=== PATIENT | male | born 1980 | race American Indian/Alaskan Native ===

== ENCOUNTER 2020-12-18 08:26 | Emergency (ER) | payer OTHER ==
[2020-12-18] MEDS ORDERED: SODIUM CHLORIDE 0.9% 1000 ML 1,000 ML IV ONE (08:58)
--- NOTE | 2020-12-18 09:13 | Emergency Department Report ---
HPI - General Chief Complaint: Seizure Time Seen by Provider: 12/18/20 08:34 - HPI HPI: This is a 40-year-old male presents to the emergency department via EMS from [facility], where the patient is currently being treated for a history of alcohol dependence, with a complaint of 2 seizures. Patient says that he has had 4 seizures total since 2018. He had a seizure last night, and another this morning. In these instances he had some type of aura in which he felt like the seizure was going to come on. He describes it as a spinning sensation that only happens on the right side. He also says that prior to the seizure occurring he was told that he had some type of tremor. The patient is not on any seizure medications. For both of the seizures the patient says that he remained awake and alert but had uncontrollable movements. At the time my examination he denies any fever, vision change, headache, chest pain, shortness of breath. Patient went to [facility] night, going into Friday, for his medical clearance and this is about the time that the patient had his last drink. ED Past Medical Hx - Past Medical History Hx Seizures: Yes - Social History Smoking Status: Unknown if ever smoked ED Review of Systems ROS: Stated complaint: SEIZURE Other details as noted in HPI Comment: All other systems reviewed and negative Constitutional: denies: chills, fever Eyes: denies: eye pain, vision change ENT: denies: ear pain, throat pain Respiratory: denies: cough, shortness of breath Cardiovascular: denies: chest pain, palpitations Gastrointestinal: denies: abdominal pain, vomiting Genitourinary: denies: dysuria, discharge Musculoskeletal: denies: back pain, arthralgia Skin: denies: rash, lesions Neurological: other (Seizures). denies: numbness Physical Exam - Physical Exam Vital Signs: Vital Signs 12/18/20 08:31 Temperature 98.8 F Pulse Rate 74 Respiratory 16 Rate Blood Pressure 152/94 O2 Sat by Pulse 97 Oximetry Physical Exam: GENERAL: The patient is well-developed well-nourished. HENT: Normocephalic. Atraumatic. Patient has moist mucous membranes. EYES: Extraocular motions are intact. No nystagmus. NECK: Supple. Trachea is midline. CHEST/LUNGS: Clear to auscultation. There is no respiratory distress noted. HEART/CARDIOVASCULAR: Regular. There is no tachycardia. There is no murmur. ABDOMEN: Abdomen is soft, nontender. Patient has normal bowel sounds. There is no abdominal distention. SKIN: Skin is warm and dry. NEURO: The patient is awake, alert, and oriented. The patient is cooperative. The patient has no focal neurologic deficits. Normal speech. No facial asymmetry. Cranial nerves II through XII grossly intact. No pronator drift or dysmetria. Patient has a very mild distal bilateral upper extremity tremor. MUSCULOSKELETAL: There is no tenderness or deformity. There is no limitation range of motion. ED Course Vital Signs 12/18/20 08:31 Temperature 98.8 F Pulse Rate 74 Respiratory 16 Rate Blood Pressure 152/94 O2 Sat by Pulse 97 Oximetry ED Medical Decision Making - Lab Data Result diagrams: 12/18/20 09:14 12/18/20 09:14 Lab Results 12/18/20 12/18/20 12/18/20 Range/Units 09:14 09:14 09:14 WBC 3.7 L (4.5-11.0) K/mm3 RBC 3.73 (3.65-5.03) M/mm3 Hgb 14.1 (11.8-15.2) gm/dl Hct 41.1 (35.5-45.6) % MCV 110 H (84-94) fl MCH 38 H (28-32) pg MCHC 34 (32-34) % RDW 15.7 H (13.2-15.2) % Plt Count 80 L (140-440) K/mm3 Lymph % (Auto) 10.7 L (13.4-35.0) % [place] % (Auto) 5.5 (0.0-7.3) % Eos % (Auto) 4.5 H (0.0-4.3) % Baso % (Auto) 1.7 (0.0-1.8) % Lymph # (Auto) 0.4 L (1.2-5.4) K/mm3 [place] # (Auto) 0.2 (0.0-0.8) K/mm3 Eos # (Auto) 0.2 (0.0-0.4) K/mm3 Baso # (Auto) 0.1 (0.0-0.1) K/mm3 Seg Neutrophils % 77.6 H (40.0-70.0) % Seg Neutrophils # 2.9 (1.8-7.7) K/mm3 Sodium 140 (137-145) mmol/L Potassium 3.5 L (3.6-5.0) mmol/L Chloride 103.0 (98-107) mmol/L Carbon Dioxide 28 (22-30) mmol/L Anion Gap 13 mmol/L BUN 12 (9-20) mg/dL Creatinine 0.7 L (0.8-1.3) mg/dL Estimated GFR > 60 ml/min BUN/Creatinine Ratio 17 % Glucose 74 L (75-100) mg/dL Calcium 8.8 (8.4-10.2) mg/dL Total Bilirubin 1.20 (0.1-1.2) mg/dL AST 84 H (5-40) units/L ALT 79 H (7-56) units/L Alkaline Phosphatase 90 (35-129) units/L Total Creatine Kinase 46 L (55-170) units/L Total Protein 6.4 (6.3-8.2) g/dL Albumin 3.5 L (3.9-5) g/dL Albumin/Globulin Ratio 1.2 % TSH 1.230 (0.270-4.200) mlU/mL Urine Opiates Screen Urine Methadone Screen Ur Barbiturates Screen Ur Phencyclidine Scrn Ur Amphetamines Screen U Benzodiazepines Scrn Urine Cocaine Screen U Marijuana (THC) Screen Drugs of Abuse Note Plasma/Serum Alcohol (0-0.07) % 12/18/20 12/18/20 Range/Units 09:14 Unknown WBC (4.5-11.0) K/mm3 RBC (3.65-5.03) M/mm3 Hgb (11.8-15.2) gm/dl Hct (35.5-45.6) % MCV (84-94) fl MCH (28-32) pg MCHC (32-34) % RDW (13.2-15.2) % Plt Count (140-440) K/mm3 Lymph % (Auto) (13.4-35.0) % [place] % (Auto) (0.0-7.3) % Eos % (Auto) (0.0-4.3) % Baso % (Auto) (0.0-1.8) % Lymph # (Auto) (1.2-5.4) K/mm3 [place] # (Auto) (0.0-0.8) K/mm3 Eos # (Auto) (0.0-0.4) K/mm3 Baso # (Auto) (0.0-0.1) K/mm3 Seg Neutrophils % (40.0-70.0) % Seg Neutrophils # (1.8-7.7) K/mm3 Sodium (137-145) mmol/L Potassium (3.6-5.0) mmol/L Chloride (98-107) mmol/L Carbon Dioxide (22-30) mmol/L Anion Gap mmol/L BUN (9-20) mg/dL Creatinine (0.8-1.3) mg/dL Estimated GFR ml/min BUN/Creatinine Ratio % Glucose (75-100) mg/dL Calcium (8.4-10.2) mg/dL Total Bilirubin (0.1-1.2) mg/dL AST (5-40) units/L ALT (7-56) units/L Alkaline Phosphatase (35-129) units/L Total Creatine Kinase (55-170) units/L Total Protein (6.3-8.2) g/dL Albumin (3.9-5) g/dL Albumin/Globulin Ratio % TSH (0.270-4.200) mlU/mL Urine Opiates Screen Negative Urine Methadone Screen Negative Ur Barbiturates Screen Negative Ur Phencyclidine Scrn Negative Ur Amphetamines Screen Negative U Benzodiazepines Scrn Presumptive positive Urine Cocaine Screen Negative U Marijuana (THC) Screen Presumptive positive Drugs of Abuse Note Disclamer Plasma/Serum Alcohol < 0.01 (0-0.07) % - EKG Data -: EKG Interpreted by Pa EKG shows normal: sinus rhythm, axis, intervals, QRS complexes, ST-T waves Rate: normal - EKG Data When compared to previous EKG there are: previous EKG unavailable Interpretation: normal EKG - Medical Decision Making This patient presents to the emergency department with a complaint of 2 different episodes of seizure-like activity. However it appears atypical as the patient says that he remained awake and oriented during the seizure-like activity. Overall he says he has had for seizures in the past 3 years. These past 2 "seizures" occurred a few days after the patient stopped drinking and entered rehabilitation/detox. At the time of my examination the patient is awake, alert, oriented and does not appear in any acute distress. He does not have any focal, motor or sensory deficits and his cranial nerves are intact. He does not complain of any headache, vision change, slurred speech, numbness or paresthesias. For these reasons I did not feel that he required CT imaging of the head at this time. He was given some IV fluid resuscitation and loaded with some Keppra. Labs have been mostly unremarkable including CBC, metabolic panel, thyroid function, blood alcohol, CK level, but UDS is positive for marijuana and benzodiazepines. EKG did not have any morphology consistent with ST elevation myocardial infarction or any arrhythmia. Vital signs have been reassuring throughout his ED course including being afebrile. The patient has been reevaluated multiple times over multiple hours and has not had any return of any seizure-like activity. For all these reasons he appears safe for discharge back to a psychiatric facility. He has been instructed to follow-up with primary care, and has been given an outpatient referral for neurology, when he is done with his substance rehabilitation/detox. He has also been instructed to go to the closest emergency department with any further seizure-like activity or with any acute distress. Critical Care Time: No Critical care attestation.: If time is entered above; I have spent that time in minutes in the direct care of this critically ill patient, excluding procedure time. ED Disposition Clinical Impression: Seizure Disposition: DC-01 TO HOME OR SELFCARE Is pt being admited?: No Condition: Stable Instructions: Seizure, Adult Additional Instructions: Please follow-up with a primary care physician in the next few days. I am giving you a referral for a local neurologist, Dr. Gunter, to follow-up regarding your seizure-like activity. Because of your seizures, you are unable to drive a vehicle or operate heavy machinery or until you are cleared by a neurologist. Please avoid any illicit drug use or alcohol use, or any excessive caffeine use, as this can lower your seizure threshold. Try to get 8 hours of uninterrupted sleep per night. Return to the emergency department with any worsening of your symptoms, new or concerning symptoms not addressed during this current emergency department visit, or with any acute distress. Referrals: PRIMARY MD NIEVES [Primary Care Provider] - 3-5 Days EVONNE GUNTER MD [Referring] - 3-5 Days Time of Disposition: 12:19
[2020-12-18] MEDS ORDERED: levETIRAcetam 1000 MG/NS 0.75% 1,000 MG/100 ML BAG IV ONE (09:30)
[2020-12-18 09:43] LABS: Basophils # (Auto) 0.1 K/mm3 (0.0-0.1); Basophils % (Auto) 1.7 % (0.0-1.8); Eosinophils # (Auto) 0.2 K/mm3 (0.0-0.4); Eosinophils % (Auto) 4.5 % (0.0-4.3); Hematocrit 41.1 % (35.5-45.6); Hemoglobin 14.1 gm/dl (11.8-15.2); Lymphocytes # (Auto) 0.4 K/mm3 (1.2-5.4); Lymphocytes % (Auto) 10.7 % (13.4-35.0); Mean Corpuscular HGB Conc 34 % (32-34); Monocytes # (Auto) 0.2 K/mm3 (0.0-0.8); Monocytes % (Auto) 5.5 % (0.0-7.3); Red Blood Count 3.73 M/mm3 (3.65-5.03); Red Cell Distribution Width 15.7 % (13.2-15.2)
[2020-12-18 09:56] LABS: Mean Corpuscular Volume 110 fl (84-94); Platelet Count 80 K/mm3 (140-440)
[2020-12-18 10:03] LABS: Alanine Aminotransferase 79 units/L (7-56); Albumin 3.5 g/dL (3.9-5); BUN/Creatinine Ratio 17; Blood Urea Nitrogen 12 mg/dL (9-20); Calcium 8.8 mg/dL (8.4-10.2); Hemolysis Index 7
[2020-12-18 11:57] LABS: Amphetamine Screen,Urine Negative; Cocaine Screen,Urine Negative; Methadone Screen,Urine Negative; Opiate Screen,Urine Negative
[2020-12-18 12:32] LABS: Benzodiazepines Screen,Urine PRESUMPTIVE POSITIVE; Cannabinoid Screen,Urine PRESUMPTIVE POSITIVE
[2020-12-18 13:04] VITALS: BP 127/91
--- NOTE | 2020-12-19 10:01 | Consultation ---
History of Present Illness - Reason for Consult Consult date: 12/19/20 Reason for consult: detox - History of Present Psychiatric Illness Per ER Note: This is a 40-year-old male presents to the emergency department via EMS from [place], where the patient is currently being treated for a history of alcohol dependence, with a complaint of 2 seizures. Patient says that he has had 4 seizures total since 2018. He had a seizure last night, and another this morning. In these instances he had some type of aura in which he felt like the seizure was going to come on. He describes it as a spinning sensation that only happens on the right side. He also says that prior to the seizure occurring he was told that he had some type of tremor. The patient is not on any seizure medications. For both of the seizures the patient says that he remained awake and alert but had uncontrollable movements. At the time my examination he denies any fever, vision change, headache, chest pain, shortness of breath. Patient went to [facility] night, going into Friday, for his medical clearance and this is about the time that the patient had his last drink. Brian Graham is a 40y/o male patient who was seen today. The patient has a sitter at bedside. He states he is from [place] and was sent there for alcohol detox. The patient is calm and cooperative. He is polite. He says he drinks about 1/2 pint of liqueur every day. The patient denies SI/HI, he says "I guess if you call wanting to drink yourself to suicidal." He then states "But, no, I don't want to kill myself." He says "I'm just over the drinking myself." The patient says he has a good support system with his mom and sisters. He denies being on any psych meds or seeing a psychiatrist. He says "I've seen a therapist but I don't have any insurance for that." He denies hallucinations of any kind. When asking the patient was he depressed, he replies "I'm not currently depressed. Just tired of the drinking." PAST PSYCHIATRIC HISTORY Diagnoses: Alcohol dependence Suicide attempts or Self-harm behavior: Yes Prior psychiatric hospitalizations: Yes Substance Abuse history: alcohol Previous psychiatric medications tried: Denies Outpatient treatment: Denies PAST MEDICAL HISTORY: None reported Family Psychiatric History: None reported or documented SOCIAL HISTORY Marital Status: Single Living Arrangements: roommate Employment Status: Unemployed Access to guns/weapons: Denies History of Abuse: Denies Legal History: None reported REVIEW OF SYSTEMS Constitutional: Negative for weight loss ENT: Negative for stridor Respiratory: Negative for cough or hemoptysis All other systems reviewed and are negative MENTAL STATUS EXAMINATION General Appearance and Behavior: Age appropriate, good hygiene, wearing appropriate clothes, good eye contact, calm and cooperative Cooperation: Participating/engaged, but Guarded Psychomotor Behavior: Psychomotor normal Mood: okay Affect and affective range: Euthymic Thought Process: Goal directed Thought Content: None Speech: Normal rate, volume and rhythm Intellectual Functioning: Average Suicidal Ideation: Denies Homicidal Ideation: Denies Hallucinations: Denies Delusions: None elicited Impulse Control: Unimpaired Insight and Judgment: Limited insight and judgment Memory: Normal Attention: Normal Orientation: Alert, oriented Assessment and Plan (1) Alcohol Dependence Current Visit: Yes Status: Acute Treatment Plan Trazodone 50mg po qhs Depakote DR 125mg po BID Vistaril 25mg po q6h prn anxiety CIWA Risks, benefits and alternatives of medications discussed with the patient, questions answered and consent obtained from patient. PSYCHOTHERAPY: Supportive psychotherapy provided MEDICAL: Per primary team DELIRIUM PRECAUTIONS: Please re-orient patient frequently, keep lights on during the day, and minimize benzodiazepines and opiates as these medications could worsen patient's confusion. MAMMOGRAPHY TECHNICIAN: Per primary DISPOSITION: Do not recommend acute inpatient psychiatric hospitalization at this time. Will follow the patient for medication management The insulation mechanic is to further discuss safety plan and document findings. Will follow. Thank you for the consult. Please contact with any questions and/or concerns. Case discussed with Dr. Yin who agrees with current disposition Medications and Allergies Allergies Allergy/AdvReac Type Severity Reaction Status Date / Time No Known Allergies Allergy Unverified 12/18/20 09:05 Mental Status Exam - Vital signs Last Vital Signs Temp 98.8 F 12/18/20 08:31 Pulse 80 12/18/20 13:01 Resp 15 12/18/20 13:01 BP 127/91 12/18/20 13:01 Pulse Ox 97 12/18/20 13:01 Results Result Diagrams: 12/18/20 09:14 12/18/20 09:14 Abnormal lab results 12/18/20 Range/Units 09:14 Potassium 3.5 L (3.6-5.0) mmol/L Creatinine 0.7 L (0.8-1.3) mg/dL Glucose 74 L (75-100) mg/dL AST 84 H (5-40) units/L ALT 79 H (7-56) units/L Total Creatine Kinase 46 L (55-170) units/L Albumin 3.5 L (3.9-5) g/dL All other labs normal.
[2020-12-19] MEDS ORDERED: chlordiazePOXIDE 25 MG CAP PO PRN (11:00)
[2020-12-19] MEDS ORDERED: hydrOXYzine PAMOATE 25 MG CAP PO PRN (11:00)
[2020-12-19] MEDS ORDERED: LORazepam 2 MG/ML VIAL IV PRN (11:00)
[2020-12-19] MEDS ORDERED: DIVALPROEX DR 125 MG TAB PO SCH (11:00)
[2020-12-19] MEDS ORDERED: traZODone 50 MG TAB PO SCH (22:00)
--- NOTE | 2020-12-28 10:52 | Electrocardiograph Report ---
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
== END 2020-12-18 14:00 | disposition admitted as inpatient to this hospital (09) ==
LOC: ED 08:26
DX: G40.909 Epilepsy, unspecified, not intractable, without status epilepticus (principal)
CPT/HCPCS: 36415; 80053; 80307; 82550; 84443; 85025; 96374; 99284; J1953; J7030; 80320; 93005; G0480

== ENCOUNTER 2020-12-18 20:30 | Inpatient (IN) | payer OTHER ==
[2020-12-19 03:12] LABS: Basophils # (Auto) 0.1 K/mm3 (0.0-0.1); Basophils % (Auto) 0.9 % (0.0-1.8); Eosinophils # (Auto) 0.1 K/mm3 (0.0-0.4); Eosinophils % (Auto) 1.1 % (0.0-4.3); Hematocrit 42.1 % (35.5-45.6); Hemoglobin 14.5 gm/dl (11.8-15.2); Lymphocytes # (Auto) 2.5 K/mm3 (1.2-5.4); Lymphocytes % (Auto) 30.5 % (13.4-35.0); Mean Corpuscular HGB Conc 34 % (32-34); Mean Corpuscular Volume 113 fl (84-94); Monocytes # (Auto) 1.1 K/mm3 (0.0-0.8); Monocytes % (Auto) 12.8 % (0.0-7.3); Platelet Count 118 K/mm3 (140-440); Red Blood Count 3.72 M/mm3 (3.65-5.03); Red Cell Distribution Width 15.5 % (13.2-15.2)
[2020-12-19] MEDS ORDERED: LORazepam 2 MG/ML VIAL IV ONE (03:18)
[2020-12-19] MEDS ORDERED: levETIRAcetam 1000 MG/NS 0.75% 1,000 MG/100 ML BAG IV ONE (03:18)
[2020-12-19] MEDS ORDERED: SODIUM CHLORIDE 0.9% 1000 ML 1,000 ML IV ONE (03:18)
--- NOTE | 2020-12-19 03:23 | Emergency Department Report ---
ED Seizure HPI - General Chief Complaint: Seizure Stated Complaint: C.C. OF SEIZURE Time Seen by Provider: 12/19/20 02:36 Source: patient Mode of arrival: Ambulatory Limitations: No Limitations - History of Present Illness Initial Comments: This is a 40-year-old male nontoxic, well nourished in appearance, no acute signs of distress presents to the ED with c/o of recurrent seizures. Patient was brought by [facility] for recurrent seizures. Patient was discharged last night but started to have seizures again. Patient does have history of seizures but denies taking any seizure medications. Patient describes seizures as uncontrollable movements while remaining awake and alert. Patient denies any chest pain, shortness of breath, fever, chills, nausea, vomiting, headache or stiff neck. Patient is alcohol dependent and stated last alcoholic drink was 5 days ago prior to [facility] rehab center. Patient is currently on 1013 with [place]. Complaint: seizure -: days(s) -: second(s) Witnessed:: Yes Trauma: No Seizure History: known seizure disorder, history of withdrawal se Possible Precipitating Event: drug use, alcohol withdrawal Associated Symptoms: denies other symptoms. denies: chest pain, confusion, cough, diaphoresis, fever/chills, malaise, rash, shortness of breath, syncope, weakness, tongue injury, shoulder dislocation - Related Data Allergies Allergy/AdvReac Type Severity Reaction Status Date / Time No Known Allergies Allergy Unverified 12/18/20 09:05 ED Review of Systems ROS: Stated complaint: C.C. OF SEIZURE Other details as noted in HPI Comment: All other systems reviewed and negative Constitutional: denies: chills, fever Eyes: denies: eye pain, eye discharge, vision change ENT: denies: ear pain, throat pain Respiratory: denies: cough, shortness of breath, wheezing Cardiovascular: denies: chest pain, palpitations Endocrine: no symptoms reported Gastrointestinal: denies: abdominal pain, nausea, diarrhea Genitourinary: denies: urgency, dysuria Musculoskeletal: denies: back pain, joint swelling, arthralgia Skin: denies: rash, lesions Neurological: denies: headache, weakness, paresthesias Psychiatric: denies: anxiety, depression Hematological/Lymphatic: denies: easy bleeding, easy bruising ED Past Medical Hx - Past Medical History Previous Medical History?: Yes Hx Seizures: Yes - Social History Smoking Status: Unknown if ever smoked ED Physical Exam - General Limitations: No Limitations General appearance: alert, in no apparent distress - Head Head exam: Present: atraumatic, normocephalic - Eye Eye exam: Present: normal appearance, PERRL, EOMI - Neck Neck exam: Present: normal inspection, full ROM. Absent: tenderness, meningismus, lymphadenopathy - Respiratory Respiratory exam: Present: normal lung sounds bilaterally. Absent: respiratory distress, wheezes, rales, rhonchi, stridor, chest wall tenderness, accessory muscle use, decreased breath sounds, prolonged expiratory - Cardiovascular Cardiovascular Exam: Present: regular rate, normal rhythm, normal heart sounds. Absent: bradycardia, tachycardia, irregular rhythm, systolic murmur, diastolic murmur, rubs, gallop - GI/Abdominal GI/Abdominal exam: Present: soft, normal bowel sounds. Absent: distended, tenderness, guarding, rebound, rigid, diminished bowel sounds - Extremities Exam Extremities exam: Present: normal inspection, full ROM, normal capillary refill. Absent: tenderness - Back Exam Back exam: Present: normal inspection, full ROM. Absent: tenderness, CVA tenderness (R), CVA tenderness (L), muscle spasm, paraspinal tenderness, vertebral tenderness, rash noted - Neurological Exam Neurological exam: Present: alert, oriented X3, normal gait - Expanded Neurological Exam Expanded Patient oriented to: Present: person, place, time Cranial nerves: EOM's Intact: Normal, Facial Sensation: Normal Cerebellar function: Finger to Nose: Normal Upper motor neuron: Pronator Drift: Normal, Sensory Extinction: Normal Motor strength exam: RUE: 5, LUE: 5, RLE: 5, LLE: 5 Best Eye Response ([place]): (4) open spontaneously Best Motor Response ([place]): (6) obeys commands Best Verbal Response ([place]): (5) oriented [place] Total: 15 - Psychiatric Psychiatric exam: Present: normal affect, normal mood - Skin Skin exam: Present: warm, dry, intact, normal color. Absent: rash ED Course Vital Signs 12/18/20 21:55 Temperature 98.2 F Pulse Rate 69 Respiratory 14 Rate Blood Pressure 133/91 O2 Sat by Pulse 97 Oximetry - Reevaluation(s) Reevaluation #1: 12/19/20 03:26 Patient is speaking in full sentences with no signs of distress noted. - Consultations Consultation #1: 12/19/20 03:27 Patient has been consulted with Dr. Bliss about patient history, physical exam, and agrees to ED plan of care and admission. Consultation #2: 12/19/20 04:21 Patient has been consulted with Dr. Melo (hospitalist) about patient history, physical exam, and labs/CT results and accepts patient to services. ED Medical Decision Making - Lab Data Result diagrams: 12/19/20 02:53 12/19/20 02:53 Lab Results 12/19/20 12/19/20 Range/Units 02:53 02:53 WBC 8.3 (4.5-11.0) K/mm3 RBC 3.72 (3.65-5.03) M/mm3 Hgb 14.5 (11.8-15.2) gm/dl Hct 42.1 (35.5-45.6) % MCV 113 H (84-94) fl MCH 39 H (28-32) pg MCHC 34 (32-34) % RDW 15.5 H (13.2-15.2) % Plt Count 118 L (140-440) K/mm3 Lymph % (Auto) 30.5 (13.4-35.0) % [place] % (Auto) 12.8 H (0.0-7.3) % Eos % (Auto) 1.1 (0.0-4.3) % Baso % (Auto) 0.9 (0.0-1.8) % Lymph # (Auto) 2.5 (1.2-5.4) K/mm3 [place] # (Auto) 1.1 H (0.0-0.8) K/mm3 Eos # (Auto) 0.1 (0.0-0.4) K/mm3 Baso # (Auto) 0.1 (0.0-0.1) K/mm3 Seg Neutrophils % 54.7 (40.0-70.0) % Seg Neutrophils # 4.5 (1.8-7.7) K/mm3 Sodium 137 (137-145) mmol/L Potassium 3.3 L (3.6-5.0) mmol/L Chloride 95.7 L (98-107) mmol/L Carbon Dioxide 11 L D (22-30) mmol/L Anion Gap 34 mmol/L BUN 9 (9-20) mg/dL Creatinine 0.9 (0.8-1.3) mg/dL Estimated GFR > 60 ml/min BUN/Creatinine Ratio 10 % Glucose 178 H (75-100) mg/dL Calcium 8.8 (8.4-10.2) mg/dL Total Bilirubin 1.10 (0.1-1.2) mg/dL AST 90 H (5-40) units/L ALT 94 H (7-56) units/L Alkaline Phosphatase 105 (35-129) units/L Total Protein 6.9 (6.3-8.2) g/dL Albumin 4.2 (3.9-5) g/dL Albumin/Globulin Ratio 1.6 % - Radiology Data [facility] [address] [place] [address] Cat Scan Report Signed Patient: TARIK VALDEZ MR#: [id number] : 1980 Acct:[id number] Age/Sex: 40 / M ADM Date: 12/18/20 Loc: ED Attending Dr: Ordering Physician: HOLLY AGARWAL NP Date of Service: 12/19/20 Procedure(s): CT head/brain wo con Accession Number(s): [id number] cc: HOLLY AGARWAL NP CT head without contrast INDICATION : sz. TECHNIQUE: Axial imaging performed from the skull apex through the skull base without the use of contrast. All CT scans at this location are performed using CT dose reduction for ALARA by means of automated exposure control. COMPARISON: None FINDINGS: Parenchyma: No mass, stroke or hemorrhage. Ventricles: Ventricles are normal in size and appear symmetric. Soft tissues: Soft tissues including the orbits appear normal. Bones: No acute osseous abnormality. Sinuses: Sinuses and mastoid air cells are clear. IMPRESSION: No acute abnormality. Signer Name: Boris Angeles MD Signed: 12/19/2020 4:09 AM Workstation Name: [id number] Transcribed By: BENNY Dictated By: Boris Angeles MD Electronically Authenticated By: Boris Angeles MD Signed Date/Time: 12/19/20408 DD/ 2 TD/TT: - Medical Decision Making 40-year-old male that presents with hypokalemia, seizures with alcohol withdrawal. Patient is stable and was examined by me. Patient received medical resuscitation in the ER. Labs obtained. Please see previous visit from discharge yesterday for a full laboratory analysis. Seizure activity is maintained in the ER. Patient admitted with hospitalist. At time of admission, the patient does not seem toxic or ill in appearance. No acute signs of distress noted. Patient agrees to admission treatment plan of care. No further questions noted by the patient. Critical care attestation.: If time is entered above; I have spent that time in minutes in the direct care of this critically ill patient, excluding procedure time. ED Disposition Clinical Impression: Seizure Alcohol withdrawal seizure Qualifiers: Complication of substance-induced condition: with unspecified complication Qualified Code(s): F10.239 - Alcohol dependence with withdrawal, unspecified Disposition: DC-09 OP ADMIT IP TO THIS HOSP Is pt being admited?: Yes Condition: Stable Referrals: PRIMARY CARE, [Primary Care Provider] - 3-5 Days
[2020-12-19 03:38] LABS: Alanine Aminotransferase 94 units/L (7-56); Albumin 4.2 g/dL (3.9-5); BUN/Creatinine Ratio 10; Blood Urea Nitrogen 9 mg/dL (9-20); Calcium 8.8 mg/dL (8.4-10.2); Hemolysis Index 4
[2020-12-19] MEDS ORDERED: POTASSIUM CHLORIDE ER 20 MEQ TAB PO ONE (03:53)
--- NOTE | 2020-12-19 04:14 | Cat Scan Report ---
CT head without contrast INDICATION : sz. TECHNIQUE: Axial imaging performed from the skull apex through the skull base without the use of con trast. All CT scans at this location are performed using CT dose reduction for ALARA by means of aut omated exposure control. COMPARISON: None FINDINGS: Parenchyma: No mass, stroke or hemorrhage. Ventricles: Ventricles are normal in size and appear symmetric. Soft tissues: Soft tissues including the orbits appear normal. Bones: No acute osseous abnormality. Sinuses: Sinuses and mastoid air cells are clear. IMPRESSION: No acute abnormality. Signer Name: Boris Angeles MD Signed: 12/19/2020 4:09 AM Workstation Name: [id number]
[2020-12-19] MEDS ORDERED: THIAMINE 100 MG, FOLIC ACID 1 MG, MULTIPLE VITAMIN INJ, ADULT 10 ML in SODIUM CHLORIDE ... IV ONE (04:19)
--- NOTE | 2020-12-19 05:31 | History and Physical Report ---
History of Present Illness Date of examination: 12/19/20 Date of admission: 12/19/20 04:19 Chief complaint: seizure History of present illness: This is a 40-year-old male nontoxic, well nourished in appearance, no acute signs of distress presents to the ED with c/o of recurrent seizures. Patient was brought by [facility] for recurrent seizures. Patient was discharged last night but started to have seizures again. Patient does have history of seizures but denies taking any seizure medications. Patient describes seizures as uncontrollable movements while remaining awake and alert. Patient denies any chest pain, shortness of breath, fever, chills, nausea, vomiting, headache or stiff neck. Patient is alcohol dependent and stated last alcoholic drink was 5 days ago prior to [facility]. Patient is currently on 1013 with [place] ED work-up shows WBC 8.3, hemoglobin 14.5, platelets 118, sodium 137, potassium 3.3, creatinine 0.9, serum glucose 178, CT of the head showed no acute abnormality. Patient seen at bedside in the ED. Patient arousable at the time of assessment. He reported a history of seizure while withdrawing from alcohol. He denied history of seizure. He said he only have when he is withdrawing from alcohol. Patient is admitted from [facility] due to persistent seizure today. I spoke to her nurse over the [facility], she said patient came for alcohol detoxification today facility. Patient started having persistent seizure and patient was brought to emergency room. Patient awake but mildly confused at time of assessment. He denies history of high blood pressure, diabetes, and hyperlipidemia. He admits alcohol use and tobacco use. I reviewed medical record, vital signs and medication record. Psych consulted and also neurologist consulted. Patient has a sitter at bedside. Past History Past Medical History: seizures Past Surgical History: No surgical history Social history: alcohol abuse Family history: no significant family history Medications and Allergies Allergies Allergy/AdvReac Type Severity Reaction Status Date / Time No Known Allergies Allergy Unverified 12/18/20 09:05 Active Meds: Active Medications Thiamine HCl 100 mg/ Folic Acid 1 mg/ Multivitamins/Minerals 10 ml/ Sodium Chl oride 1,011.2 mls @ 250 mls/hr IV ONCE ONE Stop: 12/19/20 08:21 Last Admin: 12/19/20 04:55 Dose: 250 mls/hr Documented by: Review of Systems Constitutional: lethargy Ears, nose, mouth and throat: no epistaxis, no bleeding gums Cardiovascular: no edema Gastrointestinal: no melena Rectal: no hemorrhoids Integumentary: no pruritis, no redness, no lesions Neurological: seizures, confusion Psychiatric: anxiety, suicidal ideation, hopelessness, confusion Hematologic/Lymphatic: no easy bruising, no easy bleeding Allergic/Immunologic: no urticaria Exam - Constitutional Vitals: Temp Pulse Resp BP Pulse Ox 98.2 F 69 14 133/91 97 12/18/20 21:55 12/18/20 21:55 12/18/20 21:55 12/18/20 21:55 12/18/20 21:55 General appearance: Present: mild distress, well-nourished - EENT Eyes: Present: PERRL ENT: hearing intact, clear oral mucosa - Neck Neck: Present: supple, normal ROM - Respiratory Respiratory effort: normal Respiratory: bilateral: CTA - Cardiovascular Heart rate: 69 Heart Sounds: Present: S1 & S2. Absent: rub, click - Extremities Extremities: pulses symmetrical, No edema Peripheral Pulses: within normal limits - Abdominal General gastrointestinal: Present: soft, non-tender, non-distended, normal bowel sounds Male genitourinary: Present: normal - Integumentary Integumentary: Present: clear, warm, dry - Musculoskeletal Musculoskeletal: strength equal bilaterally, generalized weakness - Psychiatric Psychiatric: cooperative - Neurologic Neurologic: CNII-XII intact, moves all extremities - Allied Health Allied health notes reviewed: nursing Results - Labs CBC & Chem 7: 12/19/20 02:53 12/19/20 02:53 Labs: Abnormal lab results 12/19/20 12/19/20 Range/Units 02:53 02:53 MCV 113 H (84-94) fl MCH 39 H (28-32) pg RDW 15.5 H (13.2-15.2) % Plt Count 118 L (140-440) K/mm3 Leslie % (Auto) 12.8 H (0.0-7.3) % Leslie # (Auto) 1.1 H (0.0-0.8) K/mm3 Potassium 3.3 L (3.6-5.0) mmol/L Chloride 95.7 L (98-107) mmol/L Carbon Dioxide 11 L D (22-30) mmol/L Glucose 178 H (75-100) mg/dL AST 90 H (5-40) units/L ALT 94 H (7-56) units/L Assessment and Plan - Patient Problems (1) Alcohol withdrawal seizure Current Visit: Yes Status: Acute Qualifiers: Complication of substance-induced condition: with unspecified complication Qualified Code(s): F10.239 - Alcohol dependence with withdrawal, unspecified; R56.9 - Unspecified convulsions Plan to address problem: Continue CIWA protocol Banana bag, as needed Ativan Safety and fall precaution at all times Aspiration precaution and keep n.p.o. until stable (2) Seizure Current Visit: Yes Status: Acute Plan to address problem: Likely secondary to alcohol withdrawal Patient denies history of seizure except when withdrawing from alcohol. Continue Keppra and as needed Ativan for seizure events and sign off withdrawal Telemetry neuro consulted (3) Thrombocytopenia Current Visit: Yes Status: Acute Plan to address problem: Likely secondary to alcohol use Monitor platelet level (4) Hypokalemia Current Visit: Yes Status: Acute Plan to address problem: Replace potassium Monitor electrolytes and replace as needed (5) Suicidal ideation Current Visit: Yes Status: Acute Plan to address problem: Continue 1013 Psych consulted follow up with plan of care (6) DVT prophylaxis Current Visit: Yes Status: Acute Plan to address problem: SCD
[2020-12-19] MEDS ORDERED: ONDANSETRON 4 MG/2 ML INJ IV PRN (05:32)
[2020-12-19] MEDS ORDERED: HALOPERIDOL LACTATE 5 MG/1 ML INJ IV PRN (05:32)
[2020-12-19] MEDS ORDERED: MAGNESIUM HYDROXIDE (MOM) ORAL LIQD UDC PO PRN (05:32)
[2020-12-19] MEDS ORDERED: DOCUSATE SODIUM 100 MG CAP PO PRN (05:32)
[2020-12-19] MEDS ORDERED: METOCLOPRAMIDE 10 MG/2 ML INJ IV PRN (05:32)
[2020-12-19] MEDS ORDERED: ALUM-MAG HYDROXIDE-SIMETHICONE 200-200-20MG/5ML ORAL LIQD 30 ML PO PRN (05:32)
[2020-12-19] MEDS ORDERED: ACETAMINOPHEN 325 MG TAB PO PRN (05:32)
[2020-12-19] MEDS ORDERED: hydrOXYzine PAMOATE 25 MG CAP PO PRN (05:41)
[2020-12-19] MEDS ORDERED: traZODone 50 MG TAB PO PRN (05:42)
[2020-12-19] MEDS ORDERED: SODIUM CHLORIDE 0.9% 1000 ML 1,000 ML IV SCH (05:45)
[2020-12-19] MEDS ORDERED: 1: FOLIC ACID 1 MG, MULTIPLE VITAMIN INJ, ADULT 10 ML, THIAMINE 100 MG in SODIUM CHLORID IV SCH (06:00)
[2020-12-19] MEDS: POTASSIUM CHLORIDE 20 MEQ 20 MEQ/100 ML BAG IV SCH ×2 (06:33→07:46)
[2020-12-19] MEDS: FAMOTIDINE 20 MG/2 ML INJ IV SCH ×2 (09:40→21:50)
--- NOTE | 2020-12-19 10:33 | Progress Note ---
Assessment and Plan Assessment and plan: Alcohol withdrawal seizure Seizure disorder Thrombocytopenia Hypokalemia Suicidal ideation 12/19/2020. Await psychiatry and neurology evaluations. Continue seizure precautions. Patient with no new seizure activity. Continue CIWA protocol. History Interval history: No new issues overnight. Hospitalist Physical - Constitutional Vitals: Temp Pulse Resp BP Pulse Ox 98.2 F 72 19 114/78 100 12/19/20 06:15 12/19/20 06:15 12/19/20 06:15 12/19/20 06:15 12/19/20 06:15 General appearance: Present: mild distress, well-nourished - EENT Eyes: Present: PERRL, EOM intact ENT: hearing intact, clear oral mucosa, dentition normal - Neck Neck: Present: supple, normal ROM - Respiratory Respiratory effort: normal Respiratory: bilateral: CTA - Cardiovascular Rhythm: regular Heart Sounds: Present: S1 & S2. Absent: gallop, rub - Extremities Extremities: no ischemia, No edema, Full ROM - Abdominal General gastrointestinal: soft, non-tender, non-distended, normal bowel sounds - Integumentary Integumentary: Present: clear, warm, dry - Neurologic Neurologic: CNII-XII intact, moves all extremities Results - Labs CBC & Chem 7: 12/19/20 02:53 12/19/20 02:53 Labs: Laboratory Last Values WBC 8.3 K/mm3 (4.5-11.0) 12/19/20 02:53 RBC 3.72 M/mm3 (3.65-5.03) 12/19/20 02:53 Hgb 14.5 gm/dl (11.8-15.2) 12/19/20 02:53 Hct 42.1 % (35.5-45.6) 12/19/20 02:53 MCV 113 fl (84-94) H 12/19/20 02:53 MCH 39 pg (28-32) H 12/19/20 02:53 MCHC 34 % (32-34) 12/19/20 02:53 RDW 15.5 % (13.2-15.2) H 12/19/20 02:53 Plt Count 118 K/mm3 (140-440) L 12/19/20 02:53 Lymph % (Auto) 30.5 % (13.4-35.0) 12/19/20 02:53 [place] % (Auto) 12.8 % (0.0-7.3) H 12/19/20 02:53 Eos % (Auto) 1.1 % (0.0-4.3) 12/19/20 02:53 Baso % (Auto) 0.9 % (0.0-1.8) 12/19/20 02:53 Lymph # (Auto) 2.5 K/mm3 (1.2-5.4) 12/19/20 02:53 [place] # (Auto) 1.1 K/mm3 (0.0-0.8) H 12/19/20 02:53 Eos # (Auto) 0.1 K/mm3 (0.0-0.4) 12/19/20 02:53 Baso # (Auto) 0.1 K/mm3 (0.0-0.1) 12/19/20 02:53 Seg Neutrophils % 54.7 % (40.0-70.0) 12/19/20 02:53 Seg Neutrophils # 4.5 K/mm3 (1.8-7.7) 12/19/20 02:53 Sodium 137 mmol/L (137-145) 12/19/20 02:53 Potassium 3.3 mmol/L (3.6-5.0) L 12/19/20 02:53 Chloride 95.7 mmol/L (98-107) L 12/19/20 02:53 Carbon Dioxide 11 mmol/L (22-30) L D 12/19/20 02:53 Anion Gap 34 mmol/L 12/19/20 02:53 BUN 9 mg/dL (9-20) 12/19/20 02:53 Creatinine 0.9 mg/dL (0.8-1.3) 12/19/20 02:53 Estimated GFR > 60 ml/min 12/19/20 02:53 BUN/Creatinine Ratio 10 % 12/19/20 02:53 Glucose 178 mg/dL (75-100) H 12/19/20 02:53 Hemoglobin A1c 4.2 % (4-6) 12/19/20 05:56 Calcium 8.8 mg/dL (8.4-10.2) 12/19/20 02:53 Phosphorus 1.70 mg/dL (2.5-4.5) L 12/19/20 05:56 Magnesium 1.70 mg/dL (1.7-2.3) 12/19/20 05:56 Total Bilirubin 1.10 mg/dL (0.1-1.2) 12/19/20 02:53 AST 90 units/L (5-40) H 12/19/20 02:53 ALT 94 units/L (7-56) H 12/19/20 02:53 Alkaline Phosphatase 105 units/L (35-129) 12/19/20 02:53 Ammonia 18.0 umol/L (25-60) L 12/19/20 05:56 Total Protein 6.9 g/dL (6.3-8.2) 12/19/20 02:53 Albumin 4.2 g/dL (3.9-5) 12/19/20 02:53 Albumin/Globulin Ratio 1.6 % 12/19/20 02:53 Lipase 69 units/L (13-60) H 12/19/20 05:56 Active Medications - Current Medications Current Medications: Generic Name Dose Route Start Last Admin Trade Name Freq PRN Reason Stop Dose Admin Acetaminophen 650 mg 12/19/20 05:32 Acetaminophen 325 Mg Tab PO Q4H PRN Pain MILD(1-3)/Fever >100.5/STROUD Al Hydrox/Mg Hydrox/Simethicone 30 ml 12/19/20 05:32 Alum-Mag Hydroxide-Simethicone 058-503-62pw/5ml Oral Liqd 30 Ml PO Q4H PRN Indigestion Docusate Sodium 100 mg 12/19/20 05:32 Docusate Sodium 100 Mg Cap PO BID PRN Constipation Famotidine 10 mg 12/19/20 10:00 12/19/20 09:40 Famotidine 20 Mg/2 Ml Inj IV 10 mg BID JODY Administration Haloperidol Lactate 5 mg 12/19/20 05:32 Haloperidol Lactate 5 Mg/1 Ml Inj IV Q1H PRN Unrespon. to mult. doses BZD's Hydralazine HCl 5 mg 12/19/20 05:42 Hydralazine 20 Mg/1 Ml Inj IV Q4HR PRN SBP >/=160; DBP >/=100 Hydroxyzine Pamoate 25 mg 12/19/20 05:41 Hydroxyzine Pamoate 25 Mg Cap PO Q6H PRN Anxiety Levetiracetam 500 mg/ Dextrose 105 mls @ 400 mls/hr 12/19/20 16:00 IV Q12H JODY Sodium Chloride 1,000 mls @ 125 mls/hr 12/19/20 09:00 Nacl 0.9% 1000 Ml IV DIRECT JODY Thiamine HCl 100 mg/ Folic 1,011.2 mls @ 125 mls/hr 12/20/20 05:00 Acid 1 mg/ Multivitamins/ IV Minerals 10 ml/ Sodium Q24H JODY Chloride Lorazepam 2 mg 12/19/20 05:32 Lorazepam 2 Mg/Ml Vial IV Q1H PRN CIWA-Ar 8-15 Magnesium Hydroxide 30 ml 12/19/20 05:32 Magnesium Hydroxide (Mom) Oral Liqd Udc PO Q4H PRN Constipation Metoclopramide HCl 10 mg 12/19/20 05:32 Metoclopramide 10 Mg/2 Ml Inj IV Q6H PRN Nausea And Vomiting Ondansetron HCl 4 mg 12/19/20 05:32 Ondansetron 4 Mg/2 Ml Inj IV Q8H PRN Nausea And Vomiting Sodium Chloride 10 ml 12/19/20 10:00 12/19/20 09:40 Sodium Chloride 0.9% 10 Ml Flush Syringe IV 10 ml BID JODY Administration Sodium Chloride 10 ml 12/19/20 05:32 Sodium Chloride 0.9% 10 Ml Flush Syringe IV PRN PRN LINE FLUSH Trazodone HCl 50 mg 12/19/20 05:42 Trazodone 50 Mg Tab PO QHS PRN Insomnia
[2020-12-19] MEDS: levETIRAcetam 500 MG in DEXTROSE 5% IN WATER 100 ML IV SCH (17:32)
[2020-12-19] MEDS: LORazepam 2 MG/ML VIAL IV PRN (21:50)
[2020-12-19] MEDS: SODIUM CHLORIDE 0.9% 1000 ML 1,000 ML IV SCH (21:50)
[2020-12-20] MEDS: levETIRAcetam 500 MG in DEXTROSE 5% IN WATER 100 ML IV SCH ×2 (04:06→18:51)
[2020-12-20] MEDS: THIAMINE 100 MG, FOLIC ACID 1 MG, MULTIPLE VITAMIN INJ, ADULT 10 ML in SODIUM CHLORIDE ... IV SCH (05:27)
[2020-12-20 05:34] LABS: Basophils % (Auto) 1.3 % (0.0-1.8); Eosinophils # (Auto) 0.1 K/mm3 (0.0-0.4); Eosinophils % (Auto) 2.4 % (0.0-4.3); Hematocrit 36.2 % (35.5-45.6); Hemoglobin 12.9 gm/dl (11.8-15.2); Lymphocytes % (Auto) 27.6 % (13.4-35.0); Mean Corpuscular HGB Conc 36 % (32-34); Mean Corpuscular Volume 109 fl (84-94); Monocytes # (Auto) 0.5 K/mm3 (0.0-0.8); Monocytes % (Auto) 13.9 % (0.0-7.3); Platelet Count 101 K/mm3 (140-440); Red Blood Count 3.34 M/mm3 (3.65-5.03); Red Cell Distribution Width 15.2 % (13.2-15.2)
[2020-12-20 05:56] LABS: Alanine Aminotransferase 76 units/L (7-56); Albumin 3.2 g/dL (3.9-5); BUN/Creatinine Ratio 8; Blood Urea Nitrogen 6 mg/dL (9-20); Calcium 8.1 mg/dL (8.4-10.2); Hemolysis Index 7
[2020-12-20] MEDS: SODIUM CHLORIDE 0.9% 1000 ML 1,000 ML IV SCH (09:32)
[2020-12-20] MEDS: FAMOTIDINE 20 MG/2 ML INJ IV SCH ×2 (09:33→21:46)
--- NOTE | 2020-12-20 11:51 | Progress Note ---
Assessment and Plan Assessment and plan: Alcohol withdrawal seizure Seizure disorder Thrombocytopenia Hypokalemia Suicidal ideation 12/19/2020. Await psychiatry and neurology evaluations. Continue seizure precautions. Patient with no new seizure activity. Continue CIWA protocol. 12/20/2020. Psychiatry has signed off. Await neurology recommendations. Patient with no new seizure activity. Continue CIWA protocol. History Interval history: No new issues overnight. Hospitalist Physical - Constitutional Vitals: Temp Pulse Resp BP Pulse Ox 97.8 F 60 18 124/87 98 12/20/20 08:51 12/20/20 08:51 12/20/20 08:51 12/20/20 08:51 12/20/20 08:51 General appearance: Present: no acute distress, well-nourished Results - Labs CBC & Chem 7: 12/20/20 04:45 12/20/20 04:45 Labs: Laboratory Last Values WBC 3.6 K/mm3 (4.5-11.0) L 12/20/20 04:45 RBC 3.34 M/mm3 (3.65-5.03) L 12/20/20 04:45 Hgb 12.9 gm/dl (11.8-15.2) 12/20/20 04:45 Hct 36.2 % (35.5-45.6) 12/20/20 04:45 MCV 109 fl (84-94) H 12/20/20 04:45 MCH 39 pg (28-32) H 12/20/20 04:45 MCHC 36 % (32-34) H 12/20/20 04:45 RDW 15.2 % (13.2-15.2) 12/20/20 04:45 Plt Count 101 K/mm3 (140-440) L 12/20/20 04:45 Lymph % (Auto) 27.6 % (13.4-35.0) 12/20/20 04:45 [place] % (Auto) 13.9 % (0.0-7.3) H 12/20/20 04:45 Eos % (Auto) 2.4 % (0.0-4.3) 12/20/20 04:45 Baso % (Auto) 1.3 % (0.0-1.8) 12/20/20 04:45 Lymph # (Auto) 1.0 K/mm3 (1.2-5.4) L 12/20/20 04:45 [place] # (Auto) 0.5 K/mm3 (0.0-0.8) 12/20/20 04:45 Eos # (Auto) 0.1 K/mm3 (0.0-0.4) 12/20/20 04:45 Baso # (Auto) 0.0 K/mm3 (0.0-0.1) 12/20/20 04:45 Seg Neutrophils % 54.8 % (40.0-70.0) 12/20/20 04:45 Seg Neutrophils # 2.0 K/mm3 (1.8-7.7) 12/20/20 04:45 Sodium 137 mmol/L (137-145) 12/20/20 04:45 Potassium 3.7 mmol/L (3.6-5.0) 12/20/20 04:45 Chloride 104.0 mmol/L (98-107) 12/20/20 04:45 Carbon Dioxide 25 mmol/L (22-30) D 12/20/20 04:45 Anion Gap 12 mmol/L 12/20/20 04:45 BUN 6 mg/dL (9-20) L 12/20/20 04:45 Creatinine 0.8 mg/dL (0.8-1.3) 12/20/20 04:45 Estimated GFR > 60 ml/min 12/20/20 04:45 BUN/Creatinine Ratio 8 % 12/20/20 04:45 Glucose 88 mg/dL (75-100) 12/20/20 04:45 Hemoglobin A1c 4.2 % (4-6) 12/19/20 05:56 Calcium 8.1 mg/dL (8.4-10.2) L 12/20/20 04:45 Phosphorus 1.70 mg/dL (2.5-4.5) L 12/19/20 05:56 Magnesium 1.70 mg/dL (1.7-2.3) 12/19/20 05:56 Total Bilirubin 1.00 mg/dL (0.1-1.2) 12/20/20 04:45 AST 78 units/L (5-40) H 12/20/20 04:45 ALT 76 units/L (7-56) H 12/20/20 04:45 Alkaline Phosphatase 80 units/L (35-129) 12/20/20 04:45 Ammonia 18.0 umol/L (25-60) L 12/19/20 05:56 Total Protein 5.9 g/dL (6.3-8.2) L 12/20/20 04:45 Albumin 3.2 g/dL (3.9-5) L 12/20/20 04:45 Albumin/Globulin Ratio 1.2 % 12/20/20 04:45 Lipase 69 units/L (13-60) H 12/19/20 05:56 Wahl/IV: Voiding Method Toilet Active Medications - Current Medications Current Medications: Generic Name Dose Route Start Last Admin Trade Name Freq PRN Reason Stop Dose Admin Acetaminophen 650 mg 12/19/20 05:32 Acetaminophen 325 Mg Tab PO Q4H PRN Pain MILD(1-3)/Fever >100.5/STROUD Al Hydrox/Mg Hydrox/Simethicone 30 ml 12/19/20 05:32 Alum-Mag Hydroxide-Simethicone 076-906-99xd/5ml Oral Liqd 30 Ml PO Q4H PRN Indigestion Docusate Sodium 100 mg 12/19/20 05:32 12/20/20 09:32 Docusate Sodium 100 Mg Cap PO 100 mg BID PRN Administration Constipation Famotidine 10 mg 12/19/20 10:00 12/20/20 09:33 Famotidine 20 Mg/2 Ml Inj IV 10 mg BID JODY Administration Haloperidol Lactate 5 mg 12/19/20 05:32 Haloperidol Lactate 5 Mg/1 Ml Inj IV Q1H PRN Unrespon. to mult. doses BZD's Hydralazine HCl 5 mg 12/19/20 05:42 Hydralazine 20 Mg/1 Ml Inj IV Q4HR PRN SBP >/=160; DBP >/=100 Hydroxyzine Pamoate 25 mg 12/19/20 05:41 Hydroxyzine Pamoate 25 Mg Cap PO Q6H PRN Anxiety Levetiracetam 500 mg/ Dextrose 105 mls @ 400 mls/hr 12/19/20 16:00 12/20/20 04:06 IV 400 mls/hr Q12H JODY Administration Sodium Chloride 1,000 mls @ 125 mls/hr 12/19/20 09:00 12/20/20 09:32 Nacl 0.9% 1000 Ml IV 125 mls/hr DIRECT JODY Administration Thiamine HCl 100 mg/ Folic 1,011.2 mls @ 125 mls/hr 12/20/20 05:00 12/20/20 05:27 Acid 1 mg/ Multivitamins/ IV 125 mls/hr Minerals 10 ml/ Sodium Q24H JODY Administration Chloride Lorazepam 2 mg 12/19/20 05:32 12/19/20 21:50 Lorazepam 2 Mg/Ml Vial IV 2 mg Q1H PRN Administration CIWA-Ar 8-15 Magnesium Hydroxide 30 ml 12/19/20 05:32 Magnesium Hydroxide (Mom) Oral Liqd Udc PO Q4H PRN Constipation Metoclopramide HCl 10 mg 12/19/20 05:32 Metoclopramide 10 Mg/2 Ml Inj IV Q6H PRN Nausea And Vomiting Ondansetron HCl 4 mg 12/19/20 05:32 Ondansetron 4 Mg/2 Ml Inj IV Q8H PRN Nausea And Vomiting Sodium Chloride 10 ml 12/19/20 10:00 12/20/20 09:35 Sodium Chloride 0.9% 10 Ml Flush Syringe IV 10 ml BID JODY Administration Sodium Chloride 10 ml 12/19/20 05:32 Sodium Chloride 0.9% 10 Ml Flush Syringe IV PRN PRN LINE FLUSH Trazodone HCl 50 mg 12/19/20 05:42 Trazodone 50 Mg Tab PO QHS PRN Insomnia
--- NOTE | 2020-12-20 13:26 | History and Physical Report ---
History of Present Illness Date of examination: 12/20/20 Date of admission: 12/19/20 04:19 Chief complaint: recurrent seizure Hx of alcoholism History of present illness: seizure History of present illness: This is a 40-year-old male nontoxic, well nourished in appearance, no acute signs of distress presents to the ED with c/o of recurrent seizures. Patient was brought by [facility] for recurrent seizures. Patient was discharged last night but started to have seizures again. Patient does have history of seizures but denies taking any seizure medications. Patient describes seizures as uncontrollable movements while remaining awake and alert. Patient denies any chest pain, shortness of breath, fever, chills, nausea, vomiting, headache or stiff neck. Patient is alcohol dependent and stated last alcoholic drink was 5 days ago prior to [facility]. Patient is currently on 1013 with [facility] ED work-up shows WBC 8.3, hemoglobin 14.5, platelets 118, sodium 137, potassium 3.3, creatinine 0.9, serum glucose 178, CT of the head showed no acute abnormality. Patient seen at bedside in the ED. Patient arousable at the time of assessment. He reported a history of seizure while withdrawing from alcohol. He denied history of seizure. He said he only have when he is withdrawing from alcohol. Patient is admitted from [facility] due to persistent seizure today. I spoke to her nurse over the [facility], she said patient came for alcohol detoxification today facility. Patient started having persistent seizure and patient was brought to emergency room. Patient awake alert today no confusion no seizure He denies history of high blood pressure, diabetes, and hyperlipidemia. He admits alcohol use and tobacco use since 2018 he average 1/2 a pine of heavy liqure a day for over a year now he does not drive no family hx of seizure he is planning to quit drinking . Patient has a sitter at bedside. Past History Past Medical History: seizures Past Surgical History: No surgical history Social history: alcohol abuse Family history: no significant family history Medications and Allergies Allergies Allergy/AdvReac Type Severity Reaction Status Date / Time No Known Allergies Allergy Unverified 12/18/20 09:05 Active Meds: Active Medications Thiamine HCl 100 mg/ Folic Acid 1 mg/ Multivitamins/Minerals 10 ml/ Sodium Chloride 1,011.2 mls @ 250 mls/hr IV ONCE ONE Stop: 12/19/20 08:21 Last Admin: 12/19/20 04:55 Dose: 250 mls/hr Documented by: Review of Systems Constitutional: lethargy Ears, nose, mouth and throat: no epistaxis, no bleeding gums Cardiovascular: no edema Gastrointestinal: no melena Rectal: no hemorrhoids Integumentary: no pruritis, no redness, no lesions Neurological: seizures, confusion Psychiatric: anxiety, suicidal ideation, hopelessness, confusion Hematologic/Lymphatic: no easy bruising, no easy bleeding Allergic/Immunologic: no urticaria Past History Past Medical History: seizures Past Surgical History: No surgical history Social history: alcohol abuse Family history: no significant family history Medications and Allergies Allergies Allergy/AdvReac Type Severity Reaction Status Date / Time No Known Allergies Allergy Unverified 12/18/20 09:05 Home Medications Medication Instructions Recorded Confirmed Last Taken Type No Known Home Medications [No 12/20/20 12/20/20 Unknown History Reported Home Medications] Active Meds: Active Medications Acetaminophen (Acetaminophen 325 Mg Tab) 650 mg PO Q4H PRN PRN Reason: Pain MILD(1-3)/Fever >100.5/STROUD Al Hydrox/Mg Hydrox/Simethicone (Alum-Mag Hydroxide-Simethicone [id number]/5ml Oral Liqd 30 Ml) 30 ml PO Q4H PRN PRN Reason: Indigestion Docusate Sodium (Docusate Sodium 100 Mg Cap) 100 mg PO BID PRN PRN Reason: Constipation Last Admin: 12/20/20 09:32 Dose: 100 mg Documented by: Famotidine (Famotidine 20 Mg/2 Ml Inj) 10 mg IV BID [facility] Last Admin: 12/20/20 09:33 Dose: 10 mg Documented by: Haloperidol Lactate (Haloperidol Lactate 5 Mg/1 Ml Inj) 5 mg IV Q1H PRN PRN Reason: Unrespon. to mult. doses BZD's Hydralazine HCl (Hydralazine 20 Mg/1 Ml Inj) 5 mg IV Q4HR PRN PRN Reason: SBP >/=160; DBP >/=100 Hydroxyzine Pamoate (Hydroxyzine Pamoate 25 Mg Cap) 25 mg PO Q6H PRN PRN Reason: Anxiety Levetiracetam 500 mg/ Dextrose 105 mls @ 400 mls/hr IV Q12H [facility] Last Admin: 12/20/20 04:06 Dose: 400 mls/hr Documented by: Sodium Chloride (Nacl 0.9% 1000 Ml) 1,000 mls @ 125 mls/hr IV DIRECT [facility] Last Admin: 12/20/20 09:32 Dose: 125 mls/hr Documented by: Thiamine HCl 100 mg/ Folic Acid 1 mg/ Multivitamins/Minerals 10 ml/ Sodium Chloride 1,011.2 mls @ 125 mls/hr IV Q24H [facility] Last Admin: 12/20/20 05:27 Dose: 125 mls/hr Documented by: Lorazepam (Lorazepam 2 Mg/Ml Vial) 2 mg IV Q1H PRN PRN Reason: CIWA-Ar 8-15 Last Admin: 12/19/20 21:50 Dose: 2 mg Documented by: Magnesium Hydroxide (Magnesium Hydroxide (Mom) Oral Liqd Udc) 30 ml PO Q4H PRN PRN Reason: Constipation Metoclopramide HCl (Metoclopramide 10 Mg/2 Ml Inj) 10 mg IV Q6H PRN PRN Reason: Nausea And Vomiting Ondansetron HCl (Ondansetron 4 Mg/2 Ml Inj) 4 mg IV Q8H PRN PRN Reason: Nausea And Vomiting Sodium Chloride (Sodium Chloride 0.9% 10 Ml Flush Syringe) 10 ml IV BID [facility] Last Admin: 12/20/20 09:35 Dose: 10 ml Documented by: Sodium Chloride (Sodium Chloride 0.9% 10 Ml Flush Syringe) 10 ml IV PRN PRN PRN Reason: LINE FLUSH Trazodone HCl (Trazodone 50 Mg Tab) 50 mg PO QHS PRN PRN Reason: Insomnia Physical Examination - Vital Signs Vital Signs: Vital Signs Temp Pulse Resp BP Pulse Ox 98.2 F 69 14 133/91 97 12/18/20 21:55 12/18/20 21:55 12/18/20 21:55 12/18/20 21:55 12/18/20 21:55 - Constitutional General appearance: comfortable - EENT EENT: Present: PERRL, mucous membranes moist - Respiratory Respiratory: Present: chest non-tender, lungs clear - Cardiovascular Cardiovascular: Present: regular rate Extremities: Present: no peripheral edema bilatateraly, no clubbing, cyanosis - Gastrointestinal Gastrointestinal: Present: normoactive bowel sounds - Neurologic Cranial nerve examination: PERRL, EOMI, intact Speech examination: intact Sensorimotor examination: intact Detailed motor examination: grossly full strength in Detailed sensory examination: intact Reflex and gait examination: intact Results - Laboratory Findings CBC and BMP: 12/20/20 04:45 12/20/20 04:45 Abnormal Lab Findings: Abnormal Labs 12/19/20 12/19/20 12/19/20 02:53 02:53 05:56 WBC RBC MCV 113 H MCH 39 H MCHC RDW 15.5 H Plt Count 118 L [place] % (Auto) 12.8 H Lymph # (Auto) [place] # (Auto) 1.1 H Potassium 3.3 L Chloride 95.7 L Carbon Dioxide 11 L D BUN Glucose 178 H Calcium Phosphorus 1.70 L AST 90 H ALT 94 H Ammonia Total Protein Albumin Lipase 69 H 12/19/20 12/20/20 12/20/20 05:56 04:45 04:45 WBC 3.6 L RBC 3.34 L MCV 109 H MCH 39 H MCHC 36 H RDW Plt Count 101 L [place] % (Auto) 13.9 H Lymph # (Auto) 1.0 L [place] # (Auto) Potassium Chloride Carbon Dioxide BUN 6 L Glucose Calcium 8.1 L Phosphorus AST 78 H ALT 76 H Ammonia 18.0 L Total Protein 5.9 L Albumin 3.2 L Lipase Assessment and Plan Assessment and Plan - Patient Problems (1) Alcohol withdrawal seizure Continue [facility] protocol Banana bag, as needed Ativan Safety and fall precaution at all times Aspiration precaution and keep n.p.o. until stable Brain MRI due to recurrent seizure ? EEG pt. does not drive (2) Seizure Likely secondary to alcohol withdrawal Patient denies history of seizure except when withdrawing from alcohol. Continue Keppra 500 mg bid and as needed Ativan for seizure events and sign off withdrawal (3) Thrombocytopenia Likely secondary to alcohol use Monitor platelet level (4) Hypokalemia Replace potassium Monitor electrolytes and replace as needed (5) Suicidal ideation Continue 1013 Psych consulted follow up with plan of care (6) DVT prophylaxis SCD will follow
--- NOTE | 2020-12-20 17:01 | Magnetic Resonance Report ---
MR brain wo/w con INDICATION / CLINICAL INFORMATION: recurrent seizure. TECHNIQUE: Multiplanar, multisequence MR images of the brain were obtained. COMPARISON: CT head 12/19/2020 FINDINGS: INTRACRANIAL: No restricted diffusion. No hemorrhage. Ventricular caliber is normal. No extra-axial c ollection. No mass. No herniation. Major intracranial vascular flow voids are preserved. No abnormal T2 signal hyperintensity is seen within the mesial temporal lobes. ORBITS: No significant abnormality of visualized orbits. SINUSES / MASTOIDS: Mucosal retention cyst in left alveolar recess of the maxillary sinus. No signifi cant abnormality of visualized sinuses and mastoid air cells. ADDITIONAL FINDINGS: None. IMPRESSION: 1. No significant intracranial abnormality. Signer Name: Michael Morillo MD Signed: 12/20/2020 4:57 PM Workstation Name: [id number]
[2020-12-20] MEDS: LORazepam 2 MG/ML VIAL IV PRN (21:46)
[2020-12-21] MEDS: hydrALAZINE 20 MG/1 ML INJ IV PRN ×2 (04:13→22:46)
[2020-12-21] MEDS: levETIRAcetam 500 MG in DEXTROSE 5% IN WATER 100 ML IV SCH (05:06)
[2020-12-21] MEDS: SODIUM CHLORIDE 0.9% 1000 ML 1,000 ML IV SCH (05:44)
--- NOTE | 2020-12-21 09:20 | Progress Note ---
Assessment and Plan Assessment and plan: Alcohol withdrawal seizure Seizure disorder Thrombocytopenia Hypokalemia Suicidal ideation 12/19/2020. Await psychiatry and neurology evaluations. Continue seizure precautions. Patient with no new seizure activity. Continue CIWA protocol. 12/20/2020. Psychiatry has signed off. Await neurology recommendations. Patient with no new seizure activity. Continue CIWA protocol. 12/21/2020. Continue CIWA protocol. Ativan as needed for seizure. Safety and fall precautions. Aspiration precautions. Follow-up MRI and EEG per neurology recommendations. History Interval history: No new issues overnight. Hospitalist Physical - Constitutional Vitals: Temp Pulse Resp BP Pulse Ox 97.1 F L 66 17 133/100 100 12/21/20 03:58 12/21/20 04:13 12/21/20 03:58 12/21/20 04:13 12/21/20 03:58 General appearance: Present: no acute distress, well-nourished - EENT Eyes: Present: PERRL, EOM intact ENT: hearing intact, clear oral mucosa, dentition normal - Neck Neck: Present: supple, normal ROM - Respiratory Respiratory effort: normal Respiratory: bilateral: CTA - Cardiovascular Rhythm: regular Heart Sounds: Present: S1 & S2. Absent: gallop, rub - Extremities Extremities: no ischemia, No edema, Full ROM - Abdominal General gastrointestinal: soft, non-tender, non-distended, normal bowel sounds - Integumentary Integumentary: Present: clear, warm, dry - Neurologic Neurologic: CNII-XII intact, moves all extremities Results - Labs CBC & Chem 7: 12/20/20 04:45 12/20/20 04:45 Labs: Laboratory Last Values WBC 3.6 K/mm3 (4.5-11.0) L 12/20/20 04:45 RBC 3.34 M/mm3 (3.65-5.03) L 12/20/20 04:45 Hgb 12.9 gm/dl (11.8-15.2) 12/20/20 04:45 Hct 36.2 % (35.5-45.6) 12/20/20 04:45 MCV 109 fl (84-94) H 12/20/20 04:45 MCH 39 pg (28-32) H 12/20/20 04:45 MCHC 36 % (32-34) H 12/20/20 04:45 RDW 15.2 % (13.2-15.2) 12/20/20 04:45 Plt Count 101 K/mm3 (140-440) L 12/20/20 04:45 Lymph % (Auto) 27.6 % (13.4-35.0) 12/20/20 04:45 Ness % (Auto) 13.9 % (0.0-7.3) H 12/20/20 04:45 Eos % (Auto) 2.4 % (0.0-4.3) 12/20/20 04:45 Baso % (Auto) 1.3 % (0.0-1.8) 12/20/20 04:45 Lymph # (Auto) 1.0 K/mm3 (1.2-5.4) L 12/20/20 04:45 Ness # (Auto) 0.5 K/mm3 (0.0-0.8) 12/20/20 04:45 Eos # (Auto) 0.1 K/mm3 (0.0-0.4) 12/20/20 04:45 Baso # (Auto) 0.0 K/mm3 (0.0-0.1) 12/20/20 04:45 Seg Neutrophils % 54.8 % (40.0-70.0) 12/20/20 04:45 Seg Neutrophils # 2.0 K/mm3 (1.8-7.7) 12/20/20 04:45 Sodium 137 mmol/L (137-145) 12/20/20 04:45 Potassium 3.7 mmol/L (3.6-5.0) 12/20/20 04:45 Chloride 104.0 mmol/L (98-107) 12/20/20 04:45 Carbon Dioxide 25 mmol/L (22-30) D 12/20/20 04:45 Anion Gap 12 mmol/L 12/20/20 04:45 BUN 6 mg/dL (9-20) L 12/20/20 04:45 Creatinine 0.8 mg/dL (0.8-1.3) 12/20/20 04:45 Estimated GFR > 60 ml/min 12/20/20 04:45 BUN/Creatinine Ratio 8 % 12/20/20 04:45 Glucose 88 mg/dL (75-100) 12/20/20 04:45 Hemoglobin A1c 4.2 % (4-6) 12/19/20 05:56 Calcium 8.1 mg/dL (8.4-10.2) L 12/20/20 04:45 Phosphorus 1.70 mg/dL (2.5-4.5) L 12/19/20 05:56 Magnesium 1.70 mg/dL (1.7-2.3) 12/19/20 05:56 Total Bilirubin 1.00 mg/dL (0.1-1.2) 12/20/20 04:45 AST 78 units/L (5-40) H 12/20/20 04:45 ALT 76 units/L (7-56) H 12/20/20 04:45 Alkaline Phosphatase 80 units/L (35-129) 12/20/20 04:45 Ammonia 18.0 umol/L (25-60) L 12/19/20 05:56 Total Protein 5.9 g/dL (6.3-8.2) L 12/20/20 04:45 Albumin 3.2 g/dL (3.9-5) L 12/20/20 04:45 Albumin/Globulin Ratio 1.2 % 12/20/20 04:45 Lipase 69 units/L (13-60) H 12/19/20 05:56 Coronavirus (PCR) Negative (Negative) 12/19/20 09:50 Wahl/IV: Voiding Method Toilet Active Medications - Current Medications Current Medications: Generic Name Dose Route Start Last Admin Trade Name Freq PRN Reason Stop Dose Admin Acetaminophen 650 mg 12/19/20 05:32 Acetaminophen 325 Mg Tab PO Q4H PRN Pain MILD(1-3)/Fever >100.5/STROUD Al Hydrox/Mg Hydrox/Simethicone 30 ml 12/19/20 05:32 Alum-Mag Hydroxide-Simethicone [id number]/5ml Oral Liqd 30 Ml PO Q4H PRN Indigestion Docusate Sodium 100 mg 12/19/20 05:32 12/20/20 09:32 Docusate Sodium 100 Mg Cap PO 100 mg BID PRN Administration Constipation Famotidine 10 mg 12/19/20 10:00 12/20/20 21:46 Famotidine 20 Mg/2 Ml Inj IV 10 mg BID JODY Administration Haloperidol Lactate 5 mg 12/19/20 05:32 Haloperidol Lactate 5 Mg/1 Ml Inj IV Q1H PRN Unrespon. to mult. doses BZD's Hydralazine HCl 5 mg 12/19/20 05:42 12/21/20 04:13 Hydralazine 20 Mg/1 Ml Inj IV 5 mg Q4HR PRN Administration SBP >/=160; DBP >/=100 Hydroxyzine Pamoate 25 mg 12/19/20 05:41 Hydroxyzine Pamoate 25 Mg Cap PO Q6H PRN Anxiety Levetiracetam 500 mg/ Dextrose 105 mls @ 400 mls/hr 12/19/20 16:00 12/21/20 05:06 IV 400 mls/hr Q12H JODY Administration Sodium Chloride 1,000 mls @ 125 mls/hr 12/19/20 09:00 12/21/20 05:44 Nacl 0.9% 1000 Ml IV 125 mls/hr DIRECT JODY Administration Thiamine HCl 100 mg/ Folic 1,011.2 mls @ 125 mls/hr 12/20/20 05:00 12/20/20 05:27 Acid 1 mg/ Multivitamins/ IV 125 mls/hr Minerals 10 ml/ Sodium Q24H JODY Administration Chloride Lorazepam 2 mg 12/19/20 05:32 12/20/20 21:46 Lorazepam 2 Mg/Ml Vial IV 2 mg Q1H PRN Administration CIWA-Ar 8-15 Magnesium Hydroxide 30 ml 12/19/20 05:32 Magnesium Hydroxide (Mom) Oral Liqd Udc PO Q4H PRN Constipation Metoclopramide HCl 10 mg 12/19/20 05:32 Metoclopramide 10 Mg/2 Ml Inj IV Q6H PRN Nausea And Vomiting Ondansetron HCl 4 mg 12/19/20 05:32 Ondansetron 4 Mg/2 Ml Inj IV Q8H PRN Nausea And Vomiting Sodium Chloride 10 ml 12/19/20 10:00 12/20/20 09:35 Sodium Chloride 0.9% 10 Ml Flush Syringe IV 10 ml BID JODY Administration Sodium Chloride 10 ml 12/19/20 05:32 Sodium Chloride 0.9% 10 Ml Flush Syringe IV PRN PRN LINE FLUSH Trazodone HCl 50 mg 12/19/20 05:42 Trazodone 50 Mg Tab PO QHS PRN Insomnia
--- NOTE | 2020-12-21 09:51 | Progress Note ---
Assessment and Plan Assessment and Plan - Patient Problems (1) Alcohol withdrawal seizure Continue CIWA protocol Banana bag, as needed Ativan Safety and fall precaution at all times Aspiration precaution and keep n.p.o. until stable Brain MRI is unremarkable EEG is pending pt. does not drive maintain Keppra for now decrease to 250 mg bid (2) Seizure Likely secondary to alcohol withdrawal Patient denies history of seizure except when withdrawing from alcohol. Continue Keppra 250 mg bid and as needed Ativan for seizure events and sign off withdrawal (3) Thrombocytopenia Likely secondary to alcohol use Monitor platelet level (4) Hypokalemia Replace potassium Monitor electrolytes and replace as needed (5) Suicidal ideation Continue 1013 Psych consulted follow up with plan of care (6) DVT prophylaxis SCD Neurology follow up after D/C maintain for now on Keppra 250 mg bid -will try to get EEG done today - Psychiatry clearance will sign off Subjective Date of service: 12/21/20 Principal diagnosis: alcoholic sezure ? withdrawal Interval history: he is doing wellno seizure no sign of alcoholic withdrawal , denied being depressed wants to go home MRI brain is unremarkable EEG not done Objective - Vital Sign Vital Signs - 12hr 12/20/20 12/20/20 12/20/20 22:00 22:44 22:49 Temperature 98.4 F Pulse Rate 63 68 Respiratory 18 Rate Blood Pressure 126/89 O2 Sat by Pulse Oximetry 12/21/20 12/21/20 03:58 04:13 Temperature 97.1 F L Pulse Rate 66 66 Respiratory 17 Rate Blood Pressure 132/100 133/100 O2 Sat by Pulse 100 Oximetry - General Apperance Constitutional: comfortable - EENT EENT: PERRL, mucous membranes moist - Respiratory Respiratory: chest non-tender, lungs clear - Cardiovascular Cardiovascular: regular rate Extremities: no peripheral edema bilat - Gastrointestinal Gastrointestinal: normoactive bowel sounds - Integumentary Integumentary: normal - Neurologic Cranial nerve examination: PERRL, EOMI, intact Speech examination: intact Detailed motor examination: grossly full strength in Reflex and gait examination: intact - Laboratory Findings CBC and BMP: 12/20/20 04:45 12/20/20 04:45 Abnormal Lab Findings: Abnormal Labs 12/19/20 12/19/20 12/19/20 02:53 02:53 05:56 WBC RBC MCV 113 H MCH 39 H MCHC RDW 15.5 H Plt Count 118 L [place] % (Auto) 12.8 H Lymph # (Auto) [place] # (Auto) 1.1 H Potassium 3.3 L Chloride 95.7 L Carbon Dioxide 11 L D BUN Glucose 178 H Calcium Phosphorus 1.70 L AST 90 H ALT 94 H Ammonia Total Protein Albumin Lipase 69 H 12/19/20 12/20/20 12/20/20 05:56 04:45 04:45 WBC 3.6 L RBC 3.34 L MCV 109 H MCH 39 H MCHC 36 H RDW Plt Count 101 L [place] % (Auto) 13.9 H Lymph # (Auto) 1.0 L [place] # (Auto) Potassium Chloride Carbon Dioxide BUN 6 L Glucose Calcium 8.1 L Phosphorus AST 78 H ALT 76 H Ammonia 18.0 L Total Protein 5.9 L Albumin 3.2 L Lipase
[2020-12-21] MEDS: FAMOTIDINE 20 MG/2 ML INJ IV SCH (10:27)
[2020-12-21] MEDS: THIAMINE 100 MG, FOLIC ACID 1 MG, MULTIPLE VITAMIN INJ, ADULT 10 ML in SODIUM CHLORIDE ... IV SCH (10:34)
--- NOTE | 2020-12-21 11:45 | Electrocardiograph Report ---
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
--- NOTE | 2020-12-21 15:02 | Electroencephalogram Report ---
Electroencephalogram EEG Date of exam: 12/21/20 History: alcohol withdrawal seizure pt. claim having 15 seizures in one day ? Description: The waking background shows an appropriate organization with well-defined anterior posterior voltage and frequency gradients. Posteriorly, there is a well -developed alpha rhythm of [7-8 ] Hz which is symmetrical and bilaterally reactive. Anteriorly, there is a pattern of lower voltage and slightly irregular theta and beta range frequencies. During drowsiness, there is attenuation of the background rhythms. there is frequent eye blinking , and motion artifact no clear sleep is noted Throughout, the recording there are no epileptiform abnormalities, focal or lateralizing features, or significant interhemispheric findings. Interpretation: this is a normal awake and drowsy record if clinically indicated repeat study sleep deprived is in order clinical correlation is in order
[2020-12-21] MEDS: levETIRAcetam 500 MG TAB PO SCH ×2 (19:45→22:46)
[2020-12-21] MEDS: FAMOTIDINE 10 MG TAB PO SCH (22:47)
[2020-12-22] MEDS: LORazepam 2 MG/ML VIAL IV PRN (01:24)
[2020-12-22] MEDS: SODIUM CHLORIDE 0.9% 1000 ML 1,000 ML IV SCH (05:25)
[2020-12-22 05:45] VITALS: BP 133/96
[2020-12-22] MEDS: levETIRAcetam 500 MG TAB PO SCH (09:17)
[2020-12-22] MEDS: FAMOTIDINE 10 MG TAB PO SCH (09:18)
--- NOTE | 2020-12-22 09:58 | Discharge Summary ---
Providers - Providers Date of Admission: 12/19/20 04:19 Date of discharge: 12/22/20 Attending physician: CHARLIE ROMERO 12/19/20 05:32 Consult to Physician [CONS] Stat Comment: Consulting Provider: ANNE MARIE SOLIS Physician Instructions: Reason For Exam: seizure 12/19/20 05:42 Consult to Mental Health [CONS] Stat Reason For Exam: suicide ideation 12/20/20 10:55 Consult to Physician [CONS] Routine Comment: Consulting Provider: GEMA MONTEJO Physician Instructions: Reason For Exam: seizure Primary care physician: HEAD GREENSKEEPER Hospitalization Reason for admission: seizure Condition: Stable Hospital course: This is a 40-year-old male with past medical history of EtOH dependence, alcohol withdrawal seizures who presented to the ED with c/o of recurrent seizures. Patient was brought by [facility] for recurrent seizures. Patient was discharged last night but started to have seizures again. Patient does have history of seizures but denies taking any seizure medications. Patient describes seizures as uncontrollable movements while remaining awake and alert. Patient denies any chest pain, shortness of breath, fever, chills, nausea, vomiting, headache or stiff neck. Patient is alcohol dependent and stated last alcoholic drink was 5 days ago prior to [facility]. Patient is currently on 1013 with [place] ED work-up shows WBC 8.3, hemoglobin 14.5, platelets 118, sodium 137, potassium 3.3, creatinine 0.9, serum glucose 178, CT of the head showed no acute abno rmality. Patient seen at bedside in the ED. He reported a history of seizure while withdrawing from alcohol. He denied history of seizure. He said he only have when he is withdrawing from alcohol. Patient is admitted from [facility] due to persistent seizure. Patient had no further seizures after admission. Patient was seen by neurology in consultation who recommended MRI and EEG. MRI and EEG were unremarkable. Neurology felt seizures were likely alcohol withdrawal. Patient will be discharged with Keppra 250 mg p.o. daily. Given the fact the patient presented from [place], patient was initially placed on 1013. Patient was seen by psychiatry and 1013 was rescinded. Patient also was placed on [facility] protocol but is now stable from any alcohol withdrawal. Patient is felt to receive maximal hospital benefit and will be discharged home. Dedicated discharge time 35 minutes. Patient should follow-up with neurology and psychiatry. Disposition: DC-01 TO HOME OR SELFCARE Final Discharge Diagnosis (Prints w/discharge instructions): Alcohol withdrawal seizure, EtOH dependence Core Measure Documentation - Palliative Care Palliative Care/ Comfort Measures: Not Applicable - Core Measures Any of the following diagnoses?: none Exam - Constitutional Vitals: Temp Pulse Resp BP Pulse Ox 96.4 F L 82 16 133/96 100 12/22/20 04:12/22/20 04:12/22/20 04:12/22/20 04:12/22/20 04:19 General appearance: Present: no acute distress, well-nourished - EENT Eyes: Present: PERRL ENT: hearing intact, clear oral mucosa - Neck Neck: Present: supple, normal ROM - Respiratory Respiratory effort: normal Respiratory: bilateral: CTA - Cardiovascular Heart Sounds: Present: S1 & S2. Absent: rub, click - Extremities Extremities: pulses symmetrical, No edema Peripheral Pulses: within normal limits - Abdominal General gastrointestinal: Present: soft, non-tender, non-distended, normal bowel sounds Male genitourinary: Present: normal - Integumentary Integumentary: Present: clear, warm, dry - Musculoskeletal Musculoskeletal: gait normal, strength equal bilaterally - Psychiatric Psychiatric: appropriate mood/affect, intact judgment & insight - Neurologic Neurologic: CNII-XII intact, moves all extremities Plan Activity: advance as tolerated Diet: regular Follow up with: PRIMARY CARE, [Primary Care Provider] - 3-5 Days GEMA MONTEJO MD [Staff Physician] - [address]: [address] [DepaKOTE DR] 125 mg PO BID #60 tablet traZODone [Desyrel] 50 mg PO QHS PRN #30 tablet PRN Reason: Insomnia Folic Acid [Folvite] 1 mg PO DAILY #30 tablet levETIRAcetam [Keppra TAB] 250 mg PO BID #60 tablet Multivitamin Tab W-MINERAL [Multiple Vitamin/Mineral (Theragran M)] 1 each PO QDAY #30 tablet hydrOXYzine PAMOATE [Vistaril] 25 mg PO Q6H PRN #20 capsule PRN Reason: Anxiety Thiamine [Vitamin B-1] 100 mg PO QDAY #30 tablet
[2020-12-22] MEDS ORDERED: FOLIC ACID 1 MG TAB PO SCH (10:00)
[2020-12-22] MEDS ORDERED: THIAMINE 100 MG TAB PO SCH (10:00)
[2020-12-22] MEDS ORDERED: MULTIVITAMINS,THER W-MINERALS TAB PO SCH (10:00)
== END 2020-12-22 12:04 | disposition home or self-care (01) | DRG 101 ==
LOC: ED 20:30 → IMCU 12-19 04:19 → 4A 12-19 17:10
PROVIDERS: ADMIT Internal Medicine Geriatric Medicine; ATTEND Hospitalist
DX: G40.909 Epilepsy, unspecified, not intractable, without status epilepticus (principal); F10.239 Alcohol dependence with withdrawal, unspecified; R45.851 Suicidal ideations; D69.6 Thrombocytopenia, unspecified; E87.6 Hypokalemia; Z20.822 Contact with and (suspected) exposure to COVID-19
CPT/HCPCS: 36415; 70450; 70553; 80053; 82140; 83036; 83690; 83735; 84100; 85025; 93005; 95819; 99406; G0378; A9575; J0360; J1953; J2060; J3411; J3480; J7030; U0003